=== PATIENT | female | born 1995 | race Caucasian/White ===

== ENCOUNTER 2017-03-13 19:31 | Emergency (ER) | payer OTHER | END 2017-03-13 22:15 | disposition home or self-care (01) | LOC: FER 19:31 | DX: L03.011 Cellulitis of right finger (principal); I25.2 Old myocardial infarction; I48.91 Unspecified atrial fibrillation ==

== ENCOUNTER 2017-03-18 17:36 | Emergency (ER) | payer OTHER | END 2017-03-18 19:16 | disposition home or self-care (01) | LOC: FER 17:36 | DX: L03.011 Cellulitis of right finger (principal); B95.62 Methicillin resistant Staphylococcus aureus infection as the cause of diseases classified elsewhere ==